=== PATIENT | female | born 1950 | race Caucasian/White ===

== ENCOUNTER 2019-12-24 12:11 | Outpatient (CLI) | payer MEDICARE, SELFPAY ==
[2019-12-24 12:53] LABS: Alanine Aminotransferase 46 U/L (4-35); Albumin Level 4.4 g/dL (3.5-5.1); Alkaline Phosphatase 53 U/L (38-126); Aspartate Amino Transferase 42 U/L (14-36); Bilirubin,Total 0.3 mg/dL (0.2-1.3); Blood Urea Nitrogen 28 mg/dL (7-17); Calcium 9.7 mg/dL (8.4-10.2); Carbon Dioxide 25 mmol/L (22-30); Chloride 104 mmol/L (98-107); Cholesterol 181 mg/dL (0-200); Estimated Glomerular Filt Rate > 60; Glucose 111 mg/dL (65-105); HDL Direct 62 mg/dL; Potassium 4.1 mmol/L (3.4-5.0); Sodium 141 mmol/L (137-145); Triglycerides 202 mg/dL (<150)
[2019-12-24 13:04] LABS: LDL Cholesterol Direct 91 mg/dL
[2019-12-24 15:29] LABS: Hemoglobin A1C 6.3 % (<5.7)
== END 2019-12-24 12:12 | disposition home or self-care (01) ==
PROVIDERS: PCP Family Medicine; Visit Provider Family Medicine
DX: E78.5 Hyperlipidemia, unspecified (principal); I10 Essential (primary) hypertension; R73.03 Prediabetes
CPT/HCPCS: 36415; 80053; 80061; 83036

== ENCOUNTER 2020-04-28 09:42 | Outpatient (CLI) | payer MEDICARE, SELFPAY ==
[2020-04-28 10:19] LABS: Hemoglobin A1C 6.5 % (<5.7)
[2020-04-28 10:23] LABS: Alanine Aminotransferase 72 U/L (4-35); Albumin Level 4.2 g/dL (3.5-5.1); Alkaline Phosphatase 68 U/L (38-126); Aspartate Amino Transferase 57 U/L (14-36); Bilirubin,Total 0.3 mg/dL (0.2-1.3); Blood Urea Nitrogen 25 mg/dL (7-17); Calcium 10.7 mg/dL (8.4-10.2); Carbon Dioxide 28 mmol/L (22-30); Chloride 105 mmol/L (98-107); Cholesterol 187 mg/dL (0-200); Estimated Glomerular Filt Rate 55; Glucose 112 mg/dL (65-105); HDL Direct 50 mg/dL; Potassium 3.9 mmol/L (3.4-5.0); Sodium 138 mmol/L (137-145); Triglycerides 200 mg/dL (<150)
[2020-04-28 10:34] LABS: LDL Cholesterol Direct 101 mg/dL
== END 2020-04-28 09:43 | disposition home or self-care (01) ==
PROVIDERS: PCP Family Medicine; Visit Provider Family Medicine
DX: E78.5 Hyperlipidemia, unspecified (principal); I10 Essential (primary) hypertension; R73.03 Prediabetes
CPT/HCPCS: 36415; 80053; 80061; 83036

== ENCOUNTER 2020-09-02 10:28 | Outpatient (CLI) | payer MEDICARE, SELFPAY ==
[2020-09-02 11:16] LABS: Hemoglobin A1C 6.1 % (<5.7)
[2020-09-02 11:21] LABS: Alanine Aminotransferase 79 U/L (4-35); Albumin Level 4.4 g/dL (3.5-5.1); Alkaline Phosphatase 57 U/L (38-126); Anion Gap 7 mmol/L (8-16); Aspartate Amino Transferase 51 U/L (14-36); Bilirubin,Total 0.6 mg/dL (0.2-1.3); Blood Urea Nitrogen 23 mg/dL (7-17); Calcium 9.7 mg/dL (8.4-10.2); Carbon Dioxide 31 mmol/L (22-30); Chloride 104 mmol/L (98-107); Cholesterol 140 mg/dL (0-200); Estimated Glomerular Filt Rate 49; Glucose 95 mg/dL (65-105); HDL Direct 42 mg/dL; Potassium 3.7 mmol/L (3.4-5.0); Sodium 142 mmol/L (137-145); Triglycerides 192 mg/dL (<150)
[2020-09-02 11:32] LABS: LDL Cholesterol Direct 66 mg/dL
== END 2020-09-02 10:29 | disposition home or self-care (01) ==
PROVIDERS: PCP Family Medicine; Visit Provider Family Medicine
DX: E78.5 Hyperlipidemia, unspecified (principal); I10 Essential (primary) hypertension; R74.02 Elevation of levels of lactic acid dehydrogenase [LDH]; E11.9 Type 2 diabetes mellitus without complications
CPT/HCPCS: 36415; 80053; 80061; 83036

== ENCOUNTER 2021-01-04 10:17 | Outpatient (CLI) | payer MEDICARE, SELFPAY ==
[2021-01-04 10:44] LABS: Hemoglobin A1C 5.4 % (<5.7)
[2021-01-04 10:46] LABS: Alanine Aminotransferase 38 U/L (4-35); Albumin Level 4.1 g/dL (3.5-5.1); Alkaline Phosphatase 47 U/L (38-126); Anion Gap 4 mmol/L (8-16); Aspartate Amino Transferase 40 U/L (14-36); Bilirubin,Total 0.5 mg/dL (0.2-1.3); Blood Urea Nitrogen 21 mg/dL (7-17); Calcium 9.2 mg/dL (8.4-10.2); Carbon Dioxide 30 mmol/L (22-30); Chloride 107 mmol/L (98-107); Cholesterol 165 mg/dL (0-200); Estimated Glomerular Filt Rate 55; Glucose 97 mg/dL (65-105); HDL Direct 51 mg/dL; Potassium 4.1 mmol/L (3.4-5.0); Sodium 141 mmol/L (137-145); Triglycerides 206 mg/dL (<150)
[2021-01-04 10:57] LABS: LDL Cholesterol Direct 77 mg/dL
== END 2021-01-04 10:18 | disposition home or self-care (01) ==
PROVIDERS: PCP Family Medicine; Visit Provider Family Medicine
DX: R73.03 Prediabetes (principal); E78.5 Hyperlipidemia, unspecified; N18.9 Chronic kidney disease, unspecified; R74.02 Elevation of levels of lactic acid dehydrogenase [LDH]
CPT/HCPCS: 36415; 80053; 80061; 83036

== ENCOUNTER 2021-01-12 11:26 | Outpatient (CLI) | payer MEDICARE, SELFPAY ==
--- NOTE | ~2021-01-12 | US_ITS ---
EXAMINATION: US right upper quadrant EXAM DATE: 01/12/2021 11:53 INDICATION: Elevated liver enzymes. TECHNIQUE: Multiple grayscale and Doppler images of the abdomen right upper quadrant were obtained (b y a technologist who performed the scan) and subsequently reviewed. There is no prior study for cash garcia. FINDINGS: The pancreatic head and body are normal in appearance. The pancreatic tail is not visualized. There is echogenic liver parenchyma, hepatic steatosis. There are no focal liver lesions identified. Th ere is no evidence of intrahepatic biliary duct dilation. Portal venous flow was seen in the hepatop edal, normal direction and has normal Doppler waveform. No right-sided hydronephrosis. Common bile duct measures 4 mm, which is normal. The gallbladder fossa is unremarkable. IMPRESSION: 1. Hepatic steatosis. Reviewed, dictated and finalized at location B. [employer] RELATIONS DIRECTOR IMPRESSION: 1. Hepatic steatosis.
== END 2021-01-12 11:27 | disposition home or self-care (01) ==
LOC: ANHIMG 11:29
PROVIDERS: PCP Family Medicine; Visit Provider Family Medicine
DX: R73.03 Prediabetes (principal); R74.01 Elevation of levels of liver transaminase levels; E78.5 Hyperlipidemia, unspecified; K76.0 Fatty (change of) liver, not elsewhere classified
CPT/HCPCS: 76705

== ENCOUNTER 2021-02-27 09:23 | Outpatient (CLI) | payer MEDICARE, SELFPAY ==
--- NOTE | ~2021-02-27 | MM_ITS ---
EXAMINATION: MM screening [facility] BI w jimbo HISTORY: Screening TECHNIQUE: Craniocaudal and mediolateral oblique 3-D tomosynthesis images were obtained and synthetic 2-D images were generated. CAD analysis was submitted and interpreted. COMPARISON: Comparison to multiple prior studies sequentially, with oldest reviewed study dated 11/2012. BREAST PARENCHYMAL COMPOSITION: There are scattered areas of fibroglandular density. FINDINGS: There is no evidence of suspicious mass, calcification, or architectural distortion to sugg est malignancy in either breast. There has been no suspicious interval change. IMPRESSION: 1. No mammographic evidence of malignancy. 2. Recommend routine screening mammography in one year. BI-RADS Category 1: Negative Reviewed, dictated and finalized at location A.
== END 2021-02-27 09:24 | disposition home or self-care (01) ==
PROVIDERS: PCP Family Medicine; Visit Provider Family Medicine
DX: Z12.31 Encounter for screening mammogram for malignant neoplasm of breast (principal)
CPT/HCPCS: 77063; 77067

== ENCOUNTER 2021-03-05 12:28 | Outpatient (CLI) | payer MEDICARE, SELFPAY ==
[2021-03-05 12:55] LABS: Alanine Aminotransferase 33 U/L (4-35); Albumin Level 4.4 g/dL (3.5-5.1); Alkaline Phosphatase 53 U/L (38-126); Aspartate Amino Transferase 46 U/L (14-36); Bilirubin,Total 0.2 mg/dL (0.2-1.3)
== END 2021-03-05 12:29 | disposition home or self-care (01) ==
PROVIDERS: PCP Family Medicine; Visit Provider Family Medicine
DX: B49 Unspecified mycosis (principal); R74.01 Elevation of levels of liver transaminase levels
CPT/HCPCS: 36415; 80076

== ENCOUNTER 2021-04-14 10:57 | Outpatient (CLI) | payer MEDICARE, SELFPAY ==
[2021-04-14 11:43] LABS: Hematocrit 41.9 % (37.0-47.0); Hemoglobin 13.9 g/dL (12.0-15.0); Mean Corpuscular HGB Conc 33.2 g/dl (32-36); Mean Corpuscular Hemoglobin 31.8 pg (26-34); Mean Corpuscular Volume 95.9 fl (80-100); Mean Platelet Volume 9.4 fl (7.4-10.4); Platelet Count Result 239 k/mm3 (150-375); Red Blood Count 4.37 M/mm3 (4.2-5.4); Red Cell Distribution Width 13.7 % (11.5-14.5)
[2021-04-14 11:54] LABS: Hemoglobin A1C 5.7 % (<5.7)
[2021-04-14 11:55] LABS: Alanine Aminotransferase 37 U/L (4-35); Albumin Level 4.1 g/dL (3.5-5.1); Alkaline Phosphatase 47 U/L (38-126); Anion Gap 7 mmol/L (8-16); Aspartate Amino Transferase 33 U/L (14-36); Bilirubin,Total 0.3 mg/dL (0.2-1.3); Blood Urea Nitrogen 26 mg/dL (7-17); Calcium 9.8 mg/dL (8.4-10.2); Carbon Dioxide 27 mmol/L (22-30); Chloride 107 mmol/L (98-107); Cholesterol 193 mg/dL (0-200); Estimated Glomerular Filt Rate > 60; Glucose 92 mg/dL (65-105); HDL Direct 59 mg/dL; Potassium 3.7 mmol/L (3.4-5.0); Sodium 141 mmol/L (137-145); Triglycerides 207 mg/dL (<150)
[2021-04-14 12:07] LABS: LDL Cholesterol Direct 73 mg/dL
== END 2021-04-14 10:58 | disposition home or self-care (01) ==
PROVIDERS: PCP Family Medicine; Visit Provider Family Medicine
DX: E78.5 Hyperlipidemia, unspecified (principal); R73.03 Prediabetes; B49 Unspecified mycosis
CPT/HCPCS: 36415; 80053; 80061; 82248; 83036; 84443; 85027

== ENCOUNTER 2021-08-14 09:49 | Outpatient (CLI) | payer MEDICARE, SELFPAY ==
[2021-08-14 10:26] LABS: Alanine Aminotransferase 52 U/L (4-35); Albumin Level 4.8 g/dL (3.5-5.1); Alkaline Phosphatase 62 U/L (38-126); Anion Gap 11 mmol/L (8-16); Aspartate Amino Transferase 45 U/L (14-36); Bilirubin,Total 0.5 mg/dL (0.2-1.3); Blood Urea Nitrogen 21 mg/dL (7-17); Calcium 10.5 mg/dL (8.4-10.2); Carbon Dioxide 26 mmol/L (22-30); Chloride 104 mmol/L (98-107); Cholesterol 164 mg/dL (0-200); Estimated Glomerular Filt Rate 49; Glucose 104 mg/dL (65-110); HDL Direct 47 mg/dL; Potassium 3.8 mmol/L (3.4-5.0); Sodium 141 mmol/L (137-145); Triglycerides 181 mg/dL (<150)
[2021-08-14 10:37] LABS: LDL Cholesterol Direct 85 mg/dL
[2021-08-14 10:49] LABS: Hemoglobin A1C 5.8 % (<5.7)
== END 2021-08-14 09:50 | disposition home or self-care (01) ==
LOC: ANHLAB 09:52
PROVIDERS: PCP Family Medicine; Visit Provider Physician Assistant
DX: E78.2 Mixed hyperlipidemia (principal); R73.03 Prediabetes; Z00.00 Encounter for general adult medical examination without abnormal findings; E78.5 Hyperlipidemia, unspecified
CPT/HCPCS: 36415; 80053; 80061; 83036

== ENCOUNTER 2021-12-25 11:32 | Outpatient (CLI) | payer MEDICARE, SELFPAY ==
[2021-12-25 12:23] LABS: Alanine Aminotransferase 35 U/L (4-35); Albumin Level 4.6 g/dL (3.5-5.1); Alkaline Phosphatase 45 U/L (38-126); Anion Gap 9 mmol/L (8-16); Aspartate Amino Transferase 39 U/L (14-36); Bilirubin,Total 0.7 mg/dL (0.2-1.3); Blood Urea Nitrogen 29 mg/dL (7-17); Calcium 10.6 mg/dL (8.4-10.2); Carbon Dioxide 25 mmol/L (22-30); Chloride 104 mmol/L (98-107); Cholesterol 178 mg/dL (0-200); Estimated Glomerular Filt Rate 34; Glucose 107 mg/dL (65-110); HDL Direct 61 mg/dL; Potassium 3.4 mmol/L (3.4-5.0); Sodium 138 mmol/L (137-145); Triglycerides 189 mg/dL (<150)
[2021-12-25 12:34] LABS: LDL Cholesterol Direct 71 mg/dL
[2021-12-25 12:41] LABS: Hemoglobin A1C 5.5 % (<5.7)
== END 2021-12-25 11:33 | disposition home or self-care (01) ==
PROVIDERS: PCP Family Medicine; Visit Provider Family Medicine
DX: R73.03 Prediabetes (principal); E78.2 Mixed hyperlipidemia; I12.9 Hypertensive chronic kidney disease with stage 1 through stage 4 chronic kidney disease, or unspecified chronic kidney disease; K76.0 Fatty (change of) liver, not elsewhere classified
CPT/HCPCS: 36415; 80053; 80061; 83036

== ENCOUNTER 2022-01-14 12:07 | Outpatient (CLI) | payer MEDICARE, SELFPAY ==
[2022-01-14 12:38] LABS: Alanine Aminotransferase 42 U/L (4-35); Albumin Level 4.3 g/dL (3.5-5.1); Alkaline Phosphatase 45 U/L (38-126); Anion Gap 7 mmol/L (8-16); Aspartate Amino Transferase 36 U/L (14-36); Bilirubin,Total 0.4 mg/dL (0.2-1.3); Blood Urea Nitrogen 20 mg/dL (7-17); Calcium 9.1 mg/dL (8.4-10.2); Carbon Dioxide 25 mmol/L (22-30); Chloride 111 mmol/L (98-107); Estimated Glomerular Filt Rate > 60; Glucose 99 mg/dL (65-110); Sodium 143 mmol/L (137-145)
== END 2022-01-14 12:08 | disposition home or self-care (01) ==
PROVIDERS: PCP Family Medicine; Visit Provider Family Medicine
DX: I12.9 Hypertensive chronic kidney disease with stage 1 through stage 4 chronic kidney disease, or unspecified chronic kidney disease (principal); R94.4 Abnormal results of kidney function studies
CPT/HCPCS: 36415; 80053

== ENCOUNTER 2022-05-10 11:29 | Outpatient (CLI) | payer MEDICARE, SELFPAY ==
[2022-05-10 12:09] LABS: Alanine Aminotransferase 33 U/L (6-35); Albumin Level 4.2 g/dL (3.5-5.1); Alkaline Phosphatase 49 U/L (38-126); Anion Gap 5 mmol/L (8-16); Aspartate Amino Transferase 34 U/L (14-36); Bilirubin,Total 0.3 mg/dL (0.2-1.3); Blood Urea Nitrogen 21 mg/dL (7-17); Calcium 9.2 mg/dL (8.4-10.2); Carbon Dioxide 26 mmol/L (22-30); Chloride 110 mmol/L (98-107); Estimated Glomerular Filt Rate 44; Glucose 83 mg/dL (65-110); Potassium 3.9 mmol/L (3.4-5.0); Sodium 141 mmol/L (137-145)
== END 2022-05-10 11:30 | disposition home or self-care (01) ==
PROVIDERS: PCP Family Medicine; Visit Provider Family Medicine
DX: E87.8 Other disorders of electrolyte and fluid balance, not elsewhere classified (principal); N18.30 Chronic kidney disease, stage 3 unspecified
CPT/HCPCS: 36415; 80053

== ENCOUNTER 2022-06-27 10:06 | Outpatient (CLI) | payer MEDICARE, SELFPAY ==
--- NOTE | ~2022-06-27 | DEXA_ITS ---
Bone Density Report Name: EDU HART Age: 72 Sex: Female Ethnicity: White Date of : 1950 Indication: postmenopausal; screening for osteoporosis; height loss; hysterectomy; Referring Provider: TAB PUCKETT Study: Bone densitometry was performed. Exam Date: June 27, 2022 Accession number: [id number] Bone Density: Region BMD T-score Z-score Classification AP Spine(L1, L3, L4) 1.128 0.7 3.0 Normal Femoral Neck (Left) 0.642 -1.9 0.1 Osteopenia Total Hip (Left) 0.842 -0.8 0.9 Normal Femoral Neck (Right) 0.528 -2.9 -0.9 Osteoporosis Total Hip (Right) 0.745 -1.6 0.1 Osteopenia Total Hip Mean 0.794 -1.2 0.5 Osteopenia World Health Organization criteria for BMD impression classify patients as: Normal (T-score at or above -1.0), Osteopenia (T-score between -1.0 and -2.5), or Osteoporosis (T-score at or below -2.5). 10-year Fracture Risk: FRAX not reported because: Some T-score for Spine Total or Hip Total or Femoral Neck at or below -2.5 Previous Exams: Region Exam Age BMD T-score BMD Change BMD Change Date g/cm2 vs Baseline vs Previous AP Spine (L1,L3-L4) 06/27/2022 72 1.128 0.7 0.023 (2.0%) 0.023 (2.0%) 09/28/2019 69 1.106 0.5 Total Hip(Left) 06/27/2022 72 0.842 -0.8 -0.002 (-0.3%) -0.002 (-0.3%) 09/28/2019 69 0.844 -0.8 Total Hip(Right) 06/27/2022 72 0.745 -1.6 -0.118 (-13.7% -0.118 (-13.7% 09/28/2019 69 0.864 -0.6 *Denotes significance at 95% confidence level, LSC for AP Spine = 0.022 g/cm2, LSC for Total Hip = 0.027 g/cm2 Clinical Information Provided by Patient: Has used the following medications: Vitamin D, Calcium Has the following medical conditions: Hysterectomy Patient maximum height was 62.5 Menopause Age: 49 No regular weight bearing exercise Onset of menses at age 12 Number of children 2 Impression: The patient has osteoporosis, based on the Right Femoral Neck T-score. The BMD for the Total Hip(Right) decreased, changing by -13.7% since the last DXA exam. Discussion: INCREASED RISK OF FRACTURE. BONE DENSITY IS UNDESIRABLY LOW AT ONE OR MORE SKELETAL SITES, CONSISTENT WITH POSTMENOPAUSAL OSTEOPOROSIS. This patient's lowest T-score meets the World Health Organization's (WHO) criteria for osteoporosis at one or more sites (T-score -2.5 or below). In untreated patients, the risk of osteoporotic fracture increases approximately two-fold for each 1.0 SD decrease in T-score. Low bone densi
--- NOTE | ~2022-06-27 | MM_ITS ---
EXAMINATION: MM screening [facility] BI w jimbo HISTORY: Screening mammogram TECHNIQUE: Craniocaudal and mediolateral oblique 3-D tomosynthesis images were obtained and synthetic 2-D images were generated. CAD analysis was submitted and interpreted. COMPARISON: 02/27/2021, 09/28/2019, 07/25/2017 BREAST PARENCHYMAL COMPOSITION: The breasts are almost entirely fatty. FINDINGS: A stable intramammary lymph node is again noted in the upper outer quadrant of the left gela ast. There is no suspicious mass, calcification, or architectural distortion to suggest malignancy in either breast. There has been no suspicious interval change. IMPRESSION: 1. No mammographic evidence of malignancy. 2. Recommend routine screening mammography in one year. BI-RADS Category 2: Benign finding(s). Reviewed, dictated and finalized at location A.
== END 2022-06-27 10:07 | disposition home or self-care (01) ==
PROVIDERS: PCP Family Medicine; Visit Provider Family Medicine
DX: Z12.31 Encounter for screening mammogram for malignant neoplasm of breast (principal); Z78.0 Asymptomatic menopausal state; M85.89 Other specified disorders of bone density and structure, multiple sites; M81.0 Age-related osteoporosis without current pathological fracture
CPT/HCPCS: 77063; 77067; 77080

== ENCOUNTER 2023-09-29 10:35 | Outpatient (CLI) | payer MEDICARE, SELFPAY ==
[2023-09-29 11:35] LABS: Basophils Absolute Auto 0.1 K/mm3 (0.0-0.1); Eosinophils Absolute Auto 0.1 K/mm3 (0-0.3); Eosinophils Percent Auto 1.6 % (0-4.4); Hematocrit 46.6 % (37.0-47.0); Hemoglobin 14.7 g/dL (12.0-15.0); Immature Granulocyte Absolute 0.02 K/mm3 (0.00-0.031); Immature Granulocyte Percent A 0.2 % (0-0.5); Lymphocytes Absolute Auto 3.01 K/mm3 (0.9-3.2); Lymphocytes Percent Auto 36.7 % (18.3-44.2); Mean Corpuscular HGB Conc 31.5 g/dl (32-36); Mean Corpuscular Hemoglobin 31.4 pg (26-34); Mean Corpuscular Volume 99.6 fl (80-100); Mean Platelet Volume 9.4 fl (7.4-10.4); Monocytes Absolute Auto 0.6 K/mm3 (0.1-0.6); Monocytes Percent Auto 7.4 % (2.6-8.5); Neutrophils Absolute Auto 4.4 K/mm3 (1.3-6.7); Neutrophils Percent Auto 53.1 % (45.5-73.1); Platelet Count Result 332 k/mm3 (150-375); Red Blood Count 4.68 M/mm3 (4.2-5.4); Red Cell Distribution Width 13.9 % (11.5-14.5); White Blood Count 8.2 K/mm3 (4.5-10.0)
[2023-09-29 11:47] LABS: Alanine Aminotransferase 40 U/L (6-35); Albumin Level 4.5 g/dL (3.5-5.1); Alkaline Phosphatase 56 U/L (38-126); Anion Gap 12 mmol/L (8-16); Aspartate Amino Transferase 38 U/L (14-36); Bilirubin,Total 0.6 mg/dL (0.2-1.3); Blood Urea Nitrogen 26 mg/dL (7-17); Calcium 10.3 mg/dL (8.4-10.2); Carbon Dioxide 26 mmol/L (22-30); Chloride 104 mmol/L (98-107); Cholesterol 160 mg/dL (0-200); Estimated Glomerular Filt Rate > 60; Glucose 98 mg/dL (65-110); HDL Direct 54 mg/dL; Potassium 3.8 mmol/L (3.4-5.0); Sodium 142 mmol/L (137-145); Triglycerides 141 mg/dL (<150)
[2023-09-29 11:58] LABS: LDL Cholesterol Direct 75 mg/dL
[2023-09-29 12:02] LABS: Creatinine Urine 214.4 mg/dL
[2023-09-29 12:07] LABS: MALB Creatinine Ratio 9.7 mg/g (0-30); Microalbumin Urine Random 20.8 mg/L (0-16.7)
[2023-09-29 12:32] LABS: Hemoglobin A1C 5.6 % (<5.7)
== END 2023-09-29 10:36 | disposition home or self-care (01) ==
PROVIDERS: PCP Family Medicine; Visit Provider Family Medicine
DX: Z78.0 Asymptomatic menopausal state (principal); N18.31 Chronic kidney disease, stage 3a; I12.9 Hypertensive chronic kidney disease with stage 1 through stage 4 chronic kidney disease, or unspecified chronic kidney disease; E66.9 Obesity, unspecified; E11.22 Type 2 diabetes mellitus with diabetic chronic kidney disease
CPT/HCPCS: 36415; 80053; 80061; 82043; 82306; 83036; 84443; 85025

== ENCOUNTER 2024-01-27 10:27 | Outpatient (CLI) | payer OTHER, SELFPAY ==
[2024-01-27 11:18] LABS: Alanine Aminotransferase 38 U/L (6-35); Albumin Level 4.3 g/dL (3.5-5.1); Alkaline Phosphatase 51 U/L (38-126); Anion Gap 7 mmol/L (8-16); Aspartate Amino Transferase 38 U/L (14-36); Bilirubin,Total 0.6 mg/dL (0.2-1.3); Blood Urea Nitrogen 28 mg/dL (7-17); Calcium 9.8 mg/dL (8.4-10.2); Carbon Dioxide 26 mmol/L (22-30); Chloride 107 mmol/L (98-107); Estimated Glomerular Filt Rate 49; Glucose 93 mg/dL (65-110); Sodium 140 mmol/L (137-145)
== END 2024-01-27 10:28 | disposition home or self-care (01) ==
LOC: ANHLAB 10:31
PROVIDERS: PCP Family Medicine; Visit Provider Physician Assistant
DX: R74.8 Abnormal levels of other serum enzymes (principal); E83.52 Hypercalcemia
CPT/HCPCS: 36415; 80053

== ENCOUNTER 2024-02-02 11:19 | Outpatient (CLI) | payer OTHER, SELFPAY ==
[2024-02-02 12:08] LABS: Cholesterol 170 mg/dL (0-200); HDL Direct 53 mg/dL; Triglycerides 177 mg/dL (<150)
[2024-02-02 12:10] LABS: Hemoglobin A1C 6.2 % (<5.7)
[2024-02-02 12:18] LABS: LDL Cholesterol Direct 88 mg/dL
[2024-02-02 14:23] LABS: Microalbumin Urine Random 10.2 mg/L (0-16.7)
[2024-02-02 14:26] LABS: Creatinine Urine 114.4 mg/dL; MALB Creatinine Ratio 8.9 mg/g (0-30)
== END 2024-02-02 11:20 | disposition home or self-care (01) ==
LOC: ANHLAB 11:21
PROVIDERS: PCP Family Medicine; Visit Provider Family Medicine
DX: E11.22 Type 2 diabetes mellitus with diabetic chronic kidney disease (principal); I12.9 Hypertensive chronic kidney disease with stage 1 through stage 4 chronic kidney disease, or unspecified chronic kidney disease; N18.31 Chronic kidney disease, stage 3a
CPT/HCPCS: 36415; 80061; 82043; 83036

== ENCOUNTER 2024-02-03 09:33 | Outpatient (CLI) | payer OTHER, SELFPAY ==
--- NOTE | ~2024-02-03 | MM_ITS ---
EXAMINATION: MM screening [facility] BI w jimbo HISTORY: Screening TECHNIQUE: Craniocaudal and mediolateral oblique 3-D tomosynthesis images were obtained and synthetic 2-D images were generated. CAD analysis was submitted and interpreted. COMPARISON: Comparison to multiple prior studies sequentially, with oldest reviewed study dated 01/25. BREAST PARENCHYMAL COMPOSITION: Not dense: There are scattered areas of fibroglandular density. FINDINGS: There is no evidence of suspicious mass, calcification, or architectural distortion to sugg est malignancy in either breast. There has been no suspicious interval change. IMPRESSION: 1. No mammographic evidence of malignancy. 2. Recommend routine screening mammography in one year. BI-RADS Category 1: Negative Reviewed, dictated and finalized at location A.
== END 2024-02-03 09:34 | disposition home or self-care (01) ==
PROVIDERS: PCP Family Medicine; Visit Provider Nurse Practitioner Family
DX: Z12.31 Encounter for screening mammogram for malignant neoplasm of breast (principal)
CPT/HCPCS: 77063; 77067

== ENCOUNTER 2024-07-27 00:21 | Day surgery (SDC) | payer OTHER, SELFPAY ==
[2024-07-13 13:43] VITALS: BMI 33.0
--- NOTE | 2024-07-27 07:06 | WPDANESEPPF ---
Anes - Initial Pre Proc Eval Procedure: Operation Date: 07/27/24 10:30 Proposed Procedures p Colonoscopy - Lukasz López MD Date/Time: 07/27/24 07:06 Surgeon: Lukasz López MD Pre Op Diagnosis: Personal hx. colon polyps Patient Data Age: 74 Gender: F Height: 1.57 m Weight: 82 kg Allergies Allergy/AdvReac Type Severity Reaction Status Date / Time No Known Allergies Allergy Verified 07/13/24 13:38 Home Medications Medication Instructions Recorded Confirmed Type aspirin 81 mg tablet,delayed 81 mg PO DAILY 12/27/19 07/27/24 History release cholecalciferol (vitamin D3) 125 125 mcg PO DAILY 09/05/20 07/27/24 History mcg (5,000 unit) capsule cetirizine 10 mg tablet (Zyrtec) 10 mg PO DAILY PRN Allergy Symptoms 04/18/21 07/27/24 History alprazolam 0.5 mg tablet 0.5 mg PO .qhs PRN sleep #90 tabs 10/15/21 07/27/24 Rx famotidine 20 mg tablet (Acid-Pep) 20 mg PO DAILY 12/31/21 07/27/24 History cyclobenzaprine 10 mg tablet 10 mg PO TID PRN muscle spasm #60 08/27/22 07/27/24 Rx tabs magnesium oxide 400 mg PO DAILY 03/13/23 07/27/24 History multivitamin 1 tablet PO DAILY 10/02/23 07/27/24 History pyridoxine (vitamin B6) 25 mg 25 mg PO DAILY 10/02/23 07/27/24 History tablet triamcinolone acetonide 0.1 % 1 applic topical QID #453.6 grams 11/07/23 07/27/24 Rx topical cream atorvastatin 20 mg tablet (Lipitor) 20 mg PO DAILY #90 tabs 11/12/23 07/27/24 Rx montelukast 10 mg tablet 10 mg PO DAILY #90 tabs 11/12/23 07/27/24 Rx olmesartan 20 1 tablet PO DAILY #90 tabs 11/12/23 07/27/24 Rx mg-hydrochlorothiazide 12.5 mg tablet (Benicar HCT) tramadol 50 mg tablet 120 mg PO Q6H PRN back pain #120 06/08/24 07/27/24 Rx tabs Patient hx anesthesia problems: none Family hx anesthesia problems: none Results Review: All pre-operative results and documents have been reviewed as part of the pre-operative evaluation. [facility] Past Medical History Medical History (Updated 07/27/24 @ 07:08 by Trevin Connelly DO) Actinic keratosis Chronic kidney disease, stage III (moderate) Elevated liver enzymes Hepatitis C antibody test negative (06/25/17) Hyperlipidemia Hypertension Kidney stone Dr Zaman 2013 two stones removed with stent placement Osteoarthritis Surgical History Surgical History (Updated 01/29/24 @ 14:03 by Allie Krause MD) H/O section 1985 Dr Vogel H/O colonoscopy H/O dilation and curettage H/O foot surgery H/O laminectomy Cervical H/O: hysterectomy History of parathyroidectomy Dr Jim Hx of cholecystectomy Family History Family History Father Hypertension Family history of kidney stones Family history of kidney disease Malignant neoplasm of prostate, Onset Age: 85 Mother Hypertension Family history of elevated blood lipids Sibling Cerebrovascular accident Family history of malignant neoplasm of cervix, Onset Age: 65 Family history of malignant neoplasm of ovary, Onset Age: 65 Other Family history of arthritis No family history of cardiovascular disease Social History Social History (Updated 01/29/24 @ 13:24 by Kaycee Barone MA) Smoking status: Never smoker Alcohol intake: current Alcohol use details: very rarely drinks glass of wine Substance use: never Substance use type: does not use Do You Feel Safe in your Home?: Yes Lack of Transportation: No Lack of Food: Never True Current Housing: I Have Housing Concerned About Future Housing: No Difficulty Paying Gas/Electric Bills: No Difficulty Paying for Meds: No Currently Unemployed: No Education: Bachelor's Degree Difficulty w/ Childcare or Family Care: No Living arrangements: with family Spiritual care concerns: No Anes - Eval Final PreProcedure Day of Procedure 07/27/24 07:06 Patient weight: obese Heart
[2024-07-27 09:04] VITALS: BP 124/89; PULSE 92; RESP 20; TEMP 36.2; O2SAT 100; BMI 33.8
[2024-07-27] MEDS: LACTATED RINGERS 1,000 ML 150 ML IV CONT (09:17)
--- NOTE | 2024-07-27 09:22 | PM.HPGS ---
History of Present Illness History of Present Illness Consent: Risks, benefits, and alternatives have been discussed and questions answered. Patient agrees to proceed with procedure. Chief complaint: Personal hx. colon polyps Narrative: Amaris Santo is a 74 year old female with colon polyp in 2018 Review of Systems Review of Systems: All systems reviewed & are unremarkable except as noted in HPI and below PMFSH Past Medical History Medical History (Updated 07/27/24 @ 07:08 by Trevin Connelly DO) Actinic keratosis Chronic kidney disease, stage III (moderate) Elevated liver enzymes Hepatitis C antibody test negative (06/25/17) Hyperlipidemia Hypertension Kidney stone Dr Zaman 2013 two stones removed with stent placement Osteoarthritis Surgical History Surgical History (Updated 01/29/24 @ 14:03 by Allie Krause MD) H/O section 1985 Dr Vogel H/O colonoscopy H/O dilation and curettage H/O foot surgery H/O laminectomy Cervical H/O: hysterectomy History of parathyroidectomy -2014 Dr Jim Hx of cholecystectomy Family History Family History Father Hypertension Family history of kidney stones Family history of kidney disease Malignant neoplasm of prostate, Onset Age: 85 Mother Hypertension Family history of elevated blood lipids Sibling Cerebrovascular accident Family history of malignant neoplasm of cervix, Onset Age: 65 Family history of malignant neoplasm of ovary, Onset Age: 65 Other Family history of arthritis No family history of cardiovascular disease Social History Social History (Updated 01/29/24 @ 13:24 by Kaycee Barone MA) Smoking status: Never smoker Alcohol intake: current Alcohol use details: very rarely drinks glass of wine Substance use: never Substance use type: does not use Do You Feel Safe in your Home?: Yes Lack of Transportation: No Lack of Food: Never True Current Housing: I Have Housing Concerned About Future Housing: No Difficulty Paying Gas/Electric Bills: No Difficulty Paying for Meds: No Currently Unemployed: No Education: Bachelor's Degree Difficulty w/ Childcare or Family Care: No Living arrangements: with family Spiritual care concerns: No Meds Home Medications and Allergies Home Medications Medication Instructions Recorded Confirmed Type aspirin 81 mg tablet,delayed 81 mg PO DAILY 12/27/19 07/27/24 History release cholecalciferol (vitamin D3) 125 125 mcg PO DAILY 09/05/20 07/27/24 History mcg (5,000 unit) capsule cetirizine 10 mg tablet (Zyrtec) 10 mg PO DAILY PRN Allergy Symptoms 04/18/21 07/27/24 History alprazolam 0.5 mg tablet 0.5 mg PO .qhs PRN sleep #90 tabs 10/15/21 07/27/24 Rx famotidine 20 mg tablet (Acid-Pep) 20 mg PO DAILY 12/31/21 07/27/24 History cyclobenzaprine 10 mg tablet 10 mg PO TID PRN muscle spasm #60 08/27/22 07/27/24 Rx tabs magnesium oxide 400 mg PO DAILY 03/13/23 07/27/24 History multivitamin 1 tablet PO DAILY 10/02/23 07/27/24 History pyridoxine (vitamin B6) 25 mg 25 mg PO DAILY 10/02/23 07/27/24 History tablet triamcinolone acetonide 0.1 % 1 applic topical QID #453.6 grams 11/07/23 07/27/24 Rx topical cream atorvastatin 20 mg tablet (Lipitor) 20 mg PO DAILY #90 tabs 11/12/23 07/27/24 Rx montelukast 10 mg tablet 10 mg PO DAILY #90 tabs 11/12/23 07/27/24 Rx olmesartan 20 1 tablet PO DAILY #90 tabs 11/12/23 07/27/24 Rx mg-hydrochlorothiazide 12.5 mg tablet (Benicar HCT) tramadol 50 mg tablet 120 mg PO Q6H PRN back pain #120 06/08/24 07/27/24 Rx tabs Allergies Allergy/AdvReac Type Severity Reaction Status Date / Time No Known Allergies Allergy Verified 07/13/24 13:38 Vital Signs Vital Signs - 24 hr 07/27/24 09:04 Temperature 97.1 F L Pulse Rate 92 Respiratory Rate 20 Blood Pressure 124/89 Pulse Oximetry 100 Oxygen Deli
[2024-07-27 09:45] VITALS: BP 85/42; PULSE 87; RESP 19; O2SAT 100
[2024-07-27 09:55] VITALS: BP 87/69; PULSE 80; RESP 22; O2SAT 100
[2024-07-27 10:05] VITALS: BP 127/69; PULSE 66; RESP 22; O2SAT 100
== END 2024-07-27 10:20 | disposition home or self-care (01) ==
PROVIDERS: PCP Family Medicine; Visit Provider Internal Medicine Gastroenterology
PROC: 0DJD8ZZ Inspection of Lower Intestinal Tract, Via Natural or Artificial Opening Endoscopic (ICD-10-PCS; CPT 45378; principal; 2024-07-27 10:30)
DX: Z12.11 Encounter for screening for malignant neoplasm of colon (principal); D12.2 Benign neoplasm of ascending colon; D12.4 Benign neoplasm of descending colon; D12.3 Benign neoplasm of transverse colon; K63.5 Polyp of colon; K64.8 Other hemorrhoids; K57.30 Diverticulosis of large intestine without perforation or abscess without bleeding; I12.9 Hypertensive chronic kidney disease with stage 1 through stage 4 chronic kidney disease, or unspecified chronic kidney disease; N18.30 Chronic kidney disease, stage 3 unspecified; E78.5 Hyperlipidemia, unspecified; L57.0 Actinic keratosis; E66.9 Obesity, unspecified; Z68.33 Body mass index [BMI] 33.0-33.9, adult; Z79.82 Long term (current) use of aspirin; Z79.891 Long term (current) use of opiate analgesic; Z98.890 Other specified postprocedural states; Z90.49 Acquired absence of other specified parts of digestive tract; Z98.1 Arthrodesis status; Z87.442 Personal history of urinary calculi; Z80.42 Family history of malignant neoplasm of prostate; Z80.41 Family history of malignant neoplasm of ovary; Z80.49 Family history of malignant neoplasm of other genital organs; Z82.49 Family history of ischemic heart disease and other diseases of the circulatory system
CPT/HCPCS: 45385; 88305; J2704; J7120

== ENCOUNTER 2024-10-04 10:53 | Outpatient (CLI) | payer OTHER, SELFPAY ==
[2024-10-04 12:12] LABS: Alanine Aminotransferase 78 U/L (6-35); Albumin Level 4.4 g/dL (3.5-5.1); Alkaline Phosphatase 59 U/L (38-126); Anion Gap 7 mmol/L (4-12); Aspartate Amino Transferase 56 U/L (14-36); Bilirubin,Total 0.8 mg/dL (0.2-1.3); Blood Urea Nitrogen 28 mg/dL (7-17); Calcium 10.2 mg/dL (8.4-10.2); Carbon Dioxide 28 mmol/L (22-30); Chloride 108 mmol/L (98-107); Cholesterol 147 mg/dL (0-200); Estimated Glomerular Filt Rate 54; Glucose 97 mg/dL (65-110); HDL Direct 48 mg/dL; Sodium 143 mmol/L (137-145); Triglycerides 177 mg/dL (<150)
[2024-10-04 12:23] LABS: LDL Cholesterol Direct 61 mg/dL
[2024-10-04 14:57] LABS: Creatinine Urine 123.9 mg/dL
[2024-10-04 15:02] LABS: MALB Creatinine Ratio 7.2 mg/g (0-30); Microalbumin Urine Random 8.9 mg/L (0-16.7)
[2024-10-04 19:19] LABS: Hemoglobin A1C 6.5 % (<5.7)
== END 2024-10-04 10:54 | disposition home or self-care (01) ==
LOC: ANHLAB 10:55
PROVIDERS: PCP Family Medicine; Visit Provider Family Medicine
DX: E11.22 Type 2 diabetes mellitus with diabetic chronic kidney disease (principal); I12.9 Hypertensive chronic kidney disease with stage 1 through stage 4 chronic kidney disease, or unspecified chronic kidney disease; N18.31 Chronic kidney disease, stage 3a
CPT/HCPCS: 36415; 80053; 80061; 82043; 83036

== ENCOUNTER 2025-01-28 10:12 | Outpatient (CLI) | payer OTHER, SELFPAY ==
[2025-01-28 11:13] LABS: Alanine Aminotransferase 53 U/L (6-35); Albumin Level 4.5 g/dL (3.5-5.1); Alkaline Phosphatase 56 U/L (38-126); Anion Gap 13 mmol/L (4-12); Aspartate Amino Transferase 40 U/L (14-36); Bilirubin,Total 0.4 mg/dL (0.2-1.3); Blood Urea Nitrogen 21 mg/dL (7-17); Calcium 10.1 mg/dL (8.4-10.2); Carbon Dioxide 24 mmol/L (22-30); Chloride 106 mmol/L (98-107); Estimated Glomerular Filt Rate 43; Glucose 108 mg/dL (65-110); Potassium 4.1 mmol/L (3.4-5.0); Sodium 143 mmol/L (137-145)
[2025-01-28 12:26] LABS: Hemoglobin A1C 6.3 % (<5.7)
== END 2025-01-28 10:13 | disposition home or self-care (01) ==
PROVIDERS: PCP Family Medicine; Visit Provider Nurse Practitioner Family
DX: E88.810 Metabolic syndrome (principal); N18.30 Chronic kidney disease, stage 3 unspecified; R74.8 Abnormal levels of other serum enzymes; Z79.899 Other long term (current) drug therapy
CPT/HCPCS: 36415; 80053; 83036

== ENCOUNTER 2025-05-04 08:44 | Outpatient (CLI) | payer OTHER, SELFPAY ==
--- NOTE | ~2025-05-04 | DEXA_ITS ---
Bone Density Report Name: EDU HART Age: 75 Sex: Female Ethnicity: White Date of : 1950 Indication: osteopenia; height loss; hysterectomy; Referring Provider: YULIYA MELVIN Study: Bone densitometry was performed. Exam Date: May 04, 2025 Accession number: [id number] Bone Density: Region BMD T-score Z-score Classification AP Spine(L1-L4) 1.053 0.1 2.5 Normal Femoral Neck (Left) 0.563 -2.6 -0.4 Osteoporosis Total Hip (Left) 0.884 -0.5 1.4 Normal Femoral Neck (Right) 0.570 -2.5 -0.4 Osteoporosis Total Hip (Right) 0.808 -1.1 0.7 Osteopenia Total Hip Mean 0.846 -0.8 1.1 Normal World Health Organization criteria for BMD impression classify patients as: Normal (T-score at or above -1.0), Osteopenia (T-score between -1.0 and -2.5), or Osteoporosis (T-score at or below -2.5). 10-year Fracture Risk: FRAX not reported because: Some T-score for Spine Total or Hip Total or Femoral Neck at or below -2.5 Previous Exams: Region Exam Age BMD T-score BMD Change BMD Change Date g/cm2 vs Baseline vs Previous Total Hip(Left) 05/04/2025 75 0.884 -0.5 0.040 (4.7%)# 0.042 (5.0%)# 06/27/2022 72 0.842 -0.8 -0.002 (-0.3%) -0.002 (-0.3%) 09/28/2019 69 0.844 -0.8 Total Hip(Right) 05/04/2025 75 0.808 -1.1 -0.056 (-6.5%) 0.063 (8.4%)* 06/27/2022 72 0.745 -1.6 -0.118 (-13.7% -0.118 (-13.7% 09/28/2019 69 0.864 -0.6 *Denotes significance at 95% confidence level, LSC for Total Hip = 0.027 g/cm2 # Denotes dissimilar scan types or analysis methods Clinical Information Provided by Patient: Has used the following medications: Vitamin D Has the following medical conditions: Hysterectomy Patient maximum height was 62.0 Menopause Age: 49 No regular weight bearing exercise Onset of menses at age 11 Number of children 2 Impression: The patient has osteoporosis, based on the Left Femoral Neck T-score. No significant bone loss was observed. Discussion: INCREASED RISK OF FRACTURE. BONE DENSITY IS UNDESIRABLY LOW AT ONE OR MORE SKELETAL SITES, CONSISTENT WITH POSTMENOPAUSAL OSTEOPOROSIS. This patient's lowest T-score meets the World Health Organization's (WHO) criteria for osteoporosis at one or more sites (T-score -2.5 or below). In untreated patients, the risk of osteoporotic fracture increases approximately two-fold for each 1.0 SD decrease in T-score. Low bone density is not the only risk factor for fracture; also consider factors such as patient's age, frailty or poor health, risk of falling, risk of injury, previous osteoporotic fracture, family history of osteoporosis, cigarette smoking, low body weight, etc. Not everyone with low bone mineral density has osteoporosis; osteomalacia and other metabolic bone disorders should also be considered. Patients who have osteoporosis should be evaluated for specific diseases and conditions (secondary causes) that may cause or contribute to bone loss. The [place] [employer] (AACE) and National Osteoporosis Foundation (NOF) recommend pharmacologic intervention for all postmenopausal women whose T-score is in this range. The patient should follow a healthful lifestyle (good nutrition with adequate calcium and vitamin D, and appropriate weight-bearing exercise). Follow-Up: Consider a repeat BMD and Vertebral Fracture Assessment (VFA) exam in 2 years or sooner if medically necessary, to reassess this patient's status. Reported by: CASPER on 05/04/2025 9:23:00 AM. Reviewed, dictated and finalized at location A.
== END 2025-05-04 08:45 | disposition home or self-care (01) ==
LOC: ANHIMG 08:45
PROVIDERS: PCP Family Medicine; Visit Provider Family Medicine
DX: M81.0 Age-related osteoporosis without current pathological fracture (principal); M85.89 Other specified disorders of bone density and structure, multiple sites; Z78.0 Asymptomatic menopausal state
CPT/HCPCS: 77080

== ENCOUNTER 2025-06-23 09:05 | Outpatient (CLI) | payer OTHER, SELFPAY ==
[2025-06-23 09:48] LABS: Hematocrit 43.9 % (37.0-47.0); Hemoglobin 14.3 g/dL (12.0-15.0); Immature Granulocyte Percent A 0.3 % (0-0.5); Lymphocytes Absolute Auto 3.32 K/mm3 (0.9-3.2); Mean Corpuscular HGB Conc 32.6 g/dl (32-36); Mean Corpuscular Hemoglobin 31.8 pg (26-34); Mean Corpuscular Volume 97.6 fl (80-100); Nucleated Red Blood Cells Absolute Auto 0.000 K/mm3 (0.0-0.012); Nucleated Red Blood Cells Perc 0.0 % (0.0-0.2); Platelet Count Result 237 k/mm3 (150-375); Red Blood Count 4.50 M/mm3 (4.2-5.4); White Blood Count 7.5 K/mm3 (4.5-10.0)
[2025-06-23 09:54] LABS: Hemoglobin A1C 6.4 % (<5.7)
[2025-06-23 10:05] LABS: Alanine Aminotransferase 57 U/L (6-35); Albumin Level 4.2 g/dL (3.5-5.1); Alkaline Phosphatase 52 U/L (38-126); Anion Gap 7 mmol/L (4-12); Aspartate Amino Transferase 50 U/L (14-36); Bilirubin,Total 0.4 mg/dL (0.2-1.3); Blood Urea Nitrogen 23 mg/dL (7-17); Calcium 9.7 mg/dL (8.4-10.2); Carbon Dioxide 25 mmol/L (22-30); Chloride 110 mmol/L (98-107); Cholesterol 178 mg/dL (0-200); Estimated Glomerular Filt Rate 53; Glucose 117 mg/dL (65-110); HDL Direct 55 mg/dL; Potassium 3.9 mmol/L (3.4-5.0); Sodium 142 mmol/L (137-145); Total Protein 7.2 g/dL (6.3-8.2); Triglycerides 183 mg/dL (<150)
[2025-06-23 10:12] LABS: MALB Creatinine Ratio 9.4 mg/g (0-30)
== END 2025-06-23 09:06 | disposition home or self-care (01) ==
LOC: ANHLAB 09:07
PROVIDERS: PCP Family Medicine; Visit Provider Family Medicine
DX: E11.22 Type 2 diabetes mellitus with diabetic chronic kidney disease (principal); I12.9 Hypertensive chronic kidney disease with stage 1 through stage 4 chronic kidney disease, or unspecified chronic kidney disease; N18.31 Chronic kidney disease, stage 3a; M81.0 Age-related osteoporosis without current pathological fracture; K76.0 Fatty (change of) liver, not elsewhere classified
CPT/HCPCS: 36415; 80053; 80061; 82043; 82306; 83036; 85025

== ENCOUNTER 2025-07-12 09:32 | Outpatient (CLI) | payer OTHER, SELFPAY ==
--- NOTE | ~2025-07-12 | MM_ITS ---
EXAMINATION: MM screening [facility] BI w jimbo HISTORY: Screening TECHNIQUE: Craniocaudal and mediolateral oblique 3-D tomosynthesis images were obtained and synthetic 2-D images were generated. CAD analysis was submitted and interpreted. COMPARISON: Comparison to multiple prior studies sequentially, with oldest reviewed study dated 05/30/2016. BREAST PARENCHYMAL COMPOSITION: The breasts are almost entirely fatty. FINDINGS: There is no evidence of suspicious mass, calcification, or architectural distortion to suggest malignancy in either breast. Scattered benign-appearing calcifications are present. IMPRESSION: 1. No mammographic evidence of malignancy. 2. Recommend routine screening mammography in one year. BI-RADS Category 2: Benign finding(s). Reviewed, dictated and finalized at location B.
== END 2025-07-12 09:33 | disposition home or self-care (01) ==
LOC: ANHFOHIMG 09:34
PROVIDERS: PCP Family Medicine; Visit Provider Nurse Practitioner Family
DX: Z12.31 Encounter for screening mammogram for malignant neoplasm of breast (principal)
CPT/HCPCS: 77063; 77067